=== PATIENT | male | born 1990 | race Caucasian/White ===

== ENCOUNTER 2025-01-23 13:42 | Day surgery (SDC) | payer SELFPAY ==
[2025-01-23] VITALS (16 sets, daily range): BP systolic 104–133; BP diastolic 56–98; PULSE 72–102; RESP 16–18; TEMP 36.5–37.1; O2SAT 91–100; BMI 38.8
--- OUTSIDE RECORDS SUMMARY | 2025-01-23 14:40 | XMS RPT_ITS | CCD ---
Author Organization [facility] Care Team Providers Care Financial Reserve Clerk Name Role Phone Christi Storm Unavailable Unavailable Christi Storm Unavailable Unavailable TIMUR LEAVITT Unavailable Unavailable TIMUR LEAVITT Unavailable Unavailable NONE, NONE Unavailable Unavailable RachelosielElie murrieta [phone] Unavailable Unavailable TIMUR LEAVITT Unavailable Unavailable NONE, NONE Unavailable Unavailable Allergies Allergy Classification Reported Allergen(s) Allergy Type Date of Onset Reaction(s) Facility (1 source) acetaminophen; Translations: [Tylenol] Drug Allergy AOF [facility] (1 source) bee venom; Translations: [bee venom (honey bee)] Propensity to adverse reactions (disorder) [facility] (1 source) Milk; Translations: [Milk] Propensity to adverse reactions (disorder) [facility] (1 source) ondansetron; Translations: [Zofran] Drug Allergy [facility] (1 source) peanut allergenic extract; Translations: [Peanut] Drug Allergy [facility] (1 source) MISC-ENV; Translations: [MISC-ENV] Propensity to adverse reactions (disorder) [facility] Problems Problem Classification Problem Date Documented Da te Episodic/Chronic Other lower respiratory disease (2 sources) Cough; Translations: [COUGH] Onset: 03-19-2017 Episodic Other upper respiratory infections (1 source) Acute upper respiratory infection, unspecified; Translations: [ACUTE UP RESPIRATORY INFECTION UNS] Onset: 03-25-2017 Episodic Viral infection (1 source) Viral infection, unspecified; Translations: [VIRAL INFECTION UNSPECIFIED] Onset: 03-25-2017 Episodic Results Test Name Value Interpretation Reference Range Facility CULTURE BLOODon 03-25-2017 Bacteria culture NO GROWTH OBSERVED AFTER 5 DAYS Normal [facility] Comment on above: Performed By: #### 6 00-7 ####[facility] Director - Merari Franz [id number] STREPTOCOCCUS SCREENon 03-21 STREPTOCOCCUS SCREEN Negative Normal [facility] Comment on above: Performed By: #### 1 8481-2, 70560-5 ####[facility] Director - Merari Franz [id number] BASIC METABOLIC PANELon Anion gap 10.0 mmol/L Normal <=15.0 [facility] Comment on above: Performed By: #### 2 4321-2 ####[facility] Director - Merari Franz [id number] Calcium 8.4 mg/dL Low 8.5-10.1 [facility] Comment on above: Performed By: #### 2 4321-2 ####[facility] Director - Merari Franz [id number] Chloride 103 mmol/L Normal 98-107 [facility] Comment on above: Performed By: #### 2 4321-2 ####[facility] Director - Merari Franz [id number] CO2 26 mmol/L Normal 21-32 [facility] Comment on above: Performed By: #### 2 4321-2 ####[facility] Director - Merari Franz [id number] Creatinine 0.73 mg/dL Normal 0.67-1.17 [facility] Comment on above: Performed By: #### 2 4321-2 ####[facility] Director - Merari Franz [id number] eGFR (MDRD) mL/min/{1.73_m2} Normal >=59 [facility] Comment on above: Performed By: #### 2 4321-2 ####[facility] Director - Merari Franz [id number] eGFR (non-black) GLOMERULAR FILTRATIO N RATE INTERPRETATION~The eGFR is calculated using the MDRD equation.~This equation has been validated in patients with chronic kidney disease;~however, it underestimates the GFR in healthy patients with GFR's over 60 mL/min.~The equation is not valid in children under the age of 18.~NOTE: Criteria for Chronic Kidney Disease:~ ~1. Kidney damage for at least three months, as defined~by structural or functional abnormalities of the kidney,~with or without decreased glomerular filtration rate, manifested by either:~* Pathological abnormalities or~* Markers of Kidney damage, including abnormalities in~the composition of the blood or urine or abnormalities in imaging tests.~ ~2. GFR <60 mL/min/1.73 m squared for at least three months, with or without kidney damage.~ Normal [facility] Comment on above: Performed By: #### 2 4321-2 ####[place] [address] Director - [facility] [id number] Glucose mass conc 119 mg/dL High 74-106 [facility] Comment on above: Performed By: #### 2 1-2 ####[place] [address] Director - Merari Osei [id number] Potassium molar conc 3.2 mmol/L Low 3.5-5.1 [facility] Comment on above: Performed By: #### 2 4320-2 ####[place] [address] Director - [facility] [id number] Sodium 139 mmol/L Normal 136-145 [facility] Comment on above: Performed By: #### 2 432-2 ####[place] [address] Director - Merari Osei [id number] Urea nitrogen 8 mg/dL Low 9-20 [facility] Comment on above: Performed By: #### 2 4321-2 ####[facility] Director - Merari Franz [id number] CBC with DIFFERENTIALon 09-0 Basophils Auto #/vol (Bld) 0.03 10*3/uL Normal <=0.70 [facility] Comment on above: Performed By: #### 5 7021-8 ####[facility] Director - Merari Franz [id number] Basophils/100 WBC Auto (Bld) 0.5 % Normal <=2.0 [facility] Comment on above: Performed By: #### 5 7021-8 ####[facility] Director - Merari Franz [id number] Eosinophils 0.01 10*3/uL Normal <=0.70 [facility] Comment on above: Performed By: #### 5 7021-8 ####[facility] Director - Merari Franz [id number] Eosinophils/100 leukocytes 0.2 % Normal <=10.0 [facility] Comment on above: Performed By: #### 5 7021-8 ####[facility] Director - Merari Franz [id number] Erythrocyte distribution width Auto Entitic volume (RBC) 38.2 fL Normal 35.1-43.9 [facility] Comment on above: Performed By: #### 5 7021-8 ####[facility] Director - Merari Franz [id number] Erythrocytes (RBC) 5.40 10*6/uL Normal 4.00-6.30 [facility] Comment on above: Performed By: #### 5 7021-8 ####[facility] Director - Meraridarryl RichardsonCLIA [id number] Hematocrit (HCT) 44.7 % Normal 40.0-54.0 [facility] Comment on above: Performed By: #### 5 7021-8 ####[facility] Director - Meraridarryl RichardsonCLIA [id number] Hemoglobin mass conc (Bld) 15.3 g/dL Normal 14.0-18.0 [facility] Comment on above: Performed By: #### 5 7021-8 ####[facility] Director - Meraridarryl RichardsonCLIA [id number] Immature granulocytes #/vol (Bld) 0.02 10*3/uL Normal <=0.10 [facility] Comment on above: Performed By: #### 5 7021-8 ####[place] [address] Director - Merari DylanCLIA [id number] Immature granulocytes/100 WBC (Bld) 0.30 % Normal <=1.50 [facility] Comment on above: Performed By: #### 5 7021-8 ####[facility] Director - Meraridarryl RichardsonCLIA [id number] Lymphocytes 1.00 10*3/uL Low 1.20-3.40 [facility] Comment on above: Performed By: #### 5 7021-8 ####[facility] Director - Merari FarrellCLIA [id number] Lymphocytes/100 leukocytes 16.8 % Low 20.0-40.0 [facility] Comment on above: Performed By: #### 5 7021-8 ####[facility] Director - Meraridarryl MorrisrellCLIA [id number] MCH 28.3 pg Normal 27.0-31.0 [facility] Comment on above: Performed By: #### 5 7021-8 ####[facility] Director - Merari FarrellCLIA [id number] MCHC mass conc (RBC) 34.2 g/dL Normal 32.0-36.0 [facility] Comment on above: Performed By: #### 5 7021-8 ####[facility] Director - Merari FarrellCLIA [id number] MCV 82.8 fL Normal 80.0-100.0 [facility] Comment on above: Performed By: #### 5 7021-8 ####[facility] Director - Merari FarrellCLIA [id number] Monocytes 0.91 10*3/uL High 0.10-0.60 [facility] Comment on above: Performed By: #### 5 7021-8 ####[facility] Director - Merari FarrellCLIA [id number] Monocytes/100 leukocytes 15.3 % High <=8.0 [facility] Comment on above: Performed By: #### 5 7021-8 ####[facility] Director - Merari FarrellCLIA [id number] Neutrophils 3.99 10*3/uL Normal 1.40-6.50 [facility] Comment on above: Performed By: #### 5 7021-8 ####[facility] Director - Merari FarrellCLIA [id number] Neutrophils/100 WBC Auto (Bld) 66.9 % Normal 50.0-70.0 [facility] Comment on above: Performed By: #### 5 7021-8 ####[facility] Director - Merari FarrellCLIA [id number] Nucleated erythrocytes 0.00 10*3/uL Normal <=0.10 [facility] Comment on above: Performed By: #### 5 7021-8 ####[place] [address] - [facility] PrashanthAK [id number] Platelet mean volume (PMV) 13.7 fL High 9.0-13.0 [facility] Comment on above: Performed By: #### 5 7021-8 ####[place] [address] [id number] Platelets 174 10*3/uL Normal 130-400 [facility] Comment on above: Performed By: #### 5 7021-8 ####[address]ct[facility] PrashanthAK [id number] WBC (Leukocytes) 5.96 10*3/uL Normal 4.80-10.80 [facility] Comment on above: Performed By: #### 5 7021-8 ####[place] [address] [id number] CHEST AND LATERAL OR 2 VIEWS on 03-20-2017 CHEST AND LATERAL OR 2 VIEWS CHEST, 2 VIEWS.COMPARISON: 07/24/2014.CLINICAL HISTORY: Cough, sore throat, congestion, and drainage for 4 days.FINDINGS: The cardiomediastinal contours are within normal limits. The lungsare clear without focal opacification or consolidation. No pleural effusion orpneumothorax. Visualized osseous structures are intact.IMPRESSION:No acute cardiopulmonary process. Normal [facility] MONO SCREENon 03-20-2017 Heteroph Ab Ser Ql EIA Negative Normal NEGATIVE [facility] Comment on above: Result Comment: This assay has not been established for patients under 18 years of age.This assay has not been established for patients under 18 years of age. Performed By: #### 6 425-3 ####[facility] DylanALICJA [id number] URINALYSISon 03-20-2017 Bilirub Ur Strip-mCnc Negative Normal NEGATIVE [facility] Comment on above: Performed By: #### 5 0564-4 ####[facility] Director - Merari Franz [id number] Glucose mass conc Negative Normal NEGATIVE [facility] Comment on above: Performed By: #### 5 0564-4 ####[facility] Director - Merari Franz [id number] Ketones Ur Strip-mCnc Negative Normal NEGATIVE [facility] Comment on above: Performed By: #### 5 0564-4 ####[facility] Director - Merari Franz [id number] Leukocyte esterase Ur-aCnc Negative Normal TRACE [facility] Comment on above: Performed By: #### 5 0564-4 ####[facility] Director - Merari Franz [id number] Urine, clarity Clear Normal CLEAR [facility] Comment on above: Performed By: #### 5 0564-4 ####[facility] Director - Merari Franz [id number] Urine, color Yellow Normal YELLOW [facility] Comment on above: Performed By: #### 5 0564-4 ####[facility] Director - Merari Franz [id number] Urine, erythrocytes Negative Normal NEGATIVE [facility] Comment on above: Performed By: #### 5 0564-4 ####[facility] Director - Merari Franz [id number] Urine, nitrite presence Negative Normal NEGATIVE [facility] Comment on above: Performed By: #### 5 0564-4 ####[facility] Director - Merari Franz [id number] Urine, pH 5.5 [pH] Normal 5.5-7.5 [facility] Comment on above: Performed By: #### 5 0564-4 ####[facility] Director - Merari Franz [id number] Urine, protein Negative Normal NEGATIVE [facility] Comment on above: Performed By: #### 5 0564-4 ####[facility] Director - Merari Franz [id number] Urine, specific gravity 1.025 Normal 1.010-1.035 [facility] Comment on above: Performed By: #### 5 0564-4 ####[place] [address] Director - Merari Franz [id number] Urobilinogen Ur-aCnc 2.0 E.U./dL Abnormal <=1 [facility] Comment on above: Performed By: #### 5 0564-4 ####[facility] Director - Merari Franz [id number] FLU A and B PANEL ARACELI Adrianankit 03-19-2017 FLUAV Ag XXX Ql Negative Normal NEGATIVE [facility] Comment on above: Performed By: #### 3 3535-6 ####[facility] Director - Merari Franz [id number] FLUBV Ag XXX Ql Negative Normal NEGATIVE [facility] Comment on above: Performed By: #### 3 3535-6 ####[facility] Director - Merari Franz [id number] RAPID STREP SCREENon 09-06-2 017 Streptococcus pyogenes antigen presence Negative Normal NEGSTREP [facility] Comment on above: Performed By: #### 1 8481-2, 87299-3 ####[facility], [place] [address]C[address]af[address] Director - Merari Franz [id number] Encounters Encounter Date Encounter Type Care Provider Facility Start: 03-19-2017 End: 03-20-2017 [facility] Start: 01-22-2017 Ambulatory Christi Storm Facilit y:Shannon Payers Date Payer Category Payer Unknown [id number] Summary Purpose Family History No Family History Records FoundNo Family History Records Found Advance Directives No Advanced Directives Records FoundNo Advanced Directives Records Found Additional Source Comments (unrecognized sect ion and content) No Status Records FoundNo Status Records Found INFORMATION SOURCE (unrecogn ized section and content) DATE CREATED AUTHOR 01/07/2018 [facility] DATE CREATED AUTHOR AUTHOR'S ORGANIZ ATION 01/09/2018 [facility] FOR RECORDS PERTAINING TO PATIENTS WHO ARE OR HAVE BEEN ENROLLED IN A CHEMICAL DEPENDENCY/SUBSTANCEABUSE PROGRAM, SOME INFORMATION MAY BE OMITTED. This clinical summary was aggregated from multiple sources. Caution should be exercised in using it in the provision of clinical care. This summary normalizes information from multiple sources, and as a consequence, information in this document may materially change the coding, format and clinical context of patient data. In addition, data may be omitted in some cases. CLINICAL DECISIONS SHOULD BE BASED ON THE PRIMARY CLINICAL RECORDS. [employer] provides no warranty or guarantee of the accuracy or completeness of information in this document.
--- NOTE | 2025-01-23 15:00 | CT_ITS ---
PROCEDURE: SOFT TISSUE NECK WITH CONTRAST 01/23/2025 REASON FOR EXAM: PHARYNGITIS TECHNIQUE: SOFT TISSUE NECK WITH CONTRAST CONTRAST: Isovue 370 VOLUME: 93 mL One or more dose reduction techniques were used (e.g., Automated exposure control, adjustment of the mA and/or kV according to patient size, use of iterative reconstruction technique). RADIATION DOSE SUMMARY: CTDlvol: 18.5 mGy DLP: 568 mGycm COMPARISON: None FINDINGS: Tonsils: Dental streak artifact slightly limits evaluation. There are hypodensities with peripheral enhancement in the left palatine tonsil measuring 1.6 x 2.5 x 1.5 cm (series 2, image 71; AP x TR x CC), and in the right palatine tonsil measuring 1.2 x 0.7 x 1.4 cm (image 70). Aerodigestive tract: There is narrowing of the aerodigestive tract at the level of the palatine tonsils. Retropharyngeal soft tissues are normal in thickness, without rim enhancing fluid collection. Salivary glands: Unremarkable Lymph nodes: Bilateral cervical chain lymphadenopathy is likely reactive. Thyroid: Unremarkable Vasculature: Unremarkable Orbits: Unremarkable Paranasal sinuses and mastoids: Predominantly clear Lung apices: Unremarkable Upper mediastinum: Unremarkable Bones: Unremarkable Dental: There is cavity formation and periapical lucency involving the for this posterior left mandibular molar. CT/Soft Tissue Neck WITH Contrast IMPRESSION: 1. Bilateral peritonsillar abscesses, measuring up to 2.5 cm on the left and 1 .4 cm on the right. Recommend ENT consultation. 2. Cervical lymphadenopathy is likely reactive. Recommend clinical follow-up. 3. 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 [place] Alert: The critical information above was relayed directly by me by telephone to Nasir Herrera on 01/23/2025 at 4:24 pm with readback verification. Reading Location: [id number]
--- NOTE | 2025-01-23 15:03 | EDS_ITS ---
HPI HPI - URI History of Present Illness Chief Complaint: Sore Throat Informant: patient Onset/Context/Timing Onset: Days Context: Gradual Onset Timing: Continuous Quality: Swelling Location: Throat Worsened by: Swallowing Relieved by: - (Nothing) Associated Symptoms Associated Symptoms: Positive for Shortness of Breath; Negative for Nasal Congestion, Headache, Nausea, Vomiting, Diarrhea, Chest Pain, Nonproductive cough, Hemoptysis or Productive Cough Narrative Narrative: Patient presents with sore throat that has been getting worse over the past several days. Patient states he had the weeks ago and was put on amoxicillin. Patient states he completed the course of amoxicillin was feeling better. Patient states that after that it started to come back. The patient has been taking amoxicillin without any improvement. Patient states his pain is worse with swallowing. Patient states he does have pain with opening his jaw. Patient admits to some subjective fevers. Patient states he feels like he has some shortness of breath at times. Patient denies any cough. ROS ROS ED Constitutional Constitutional ED: Reports fever(s) and subjective; Denies chills Eyes Eyes: Denies blurry vision or change in vision ENT ENT ED: Reports sore throat; Denies rhinorrhea Cardiovascular Cardiovascular: Denies chest pain or palpitations Respiratory/Chest Respiratory/Chest: Reports dyspnea; Denies cough Gastrointestinal Gastrointestinal: Denies nausea or vomiting Genitourinary Genitourinary ED: Denies dysuria or hematuria Musculoskeletal Musculoskeletal: Denies back pain or neck pain Integumentary Denies abscess or rash Neurologic Neurologic: Denies headache(s) or weakness Allergic/Immunologic Allergic/Immunologic ED: Denies mouth swelling or urticaria [facility] Medical History Asthma Home Medications ?Medication ?Instructions ?Recorded ?Last Taken ?Type albuterol sulfate 90 mcg/actuation 1 - 2 puff inhalati on Q4H PRN PRN 07/21/14 Unknown History aerosol inhaler (Ventolin HFA) Shortness Of Breath ondansetron 8 mg disintegrating 8 mg PO Q8H PRN PRN Na usea ##7 07/21/14 Unknown Rx tablet (Zofran ODT) Allergy/AdvReac Type Severity Reaction Status Date / Time acetaminophen (From Tylenol) Allergy blisters Verified 01/23/25 13:45 in mouth Surgical History no surgical history no surgical history Social History Smoking Status: Never smoker EXAM Physical Exam Const Vital Signs: 01/23/25 13:43 01/23/25 14:00 01/23/25 15:00 Temperature 98.8 F 98.4 F 98.6 F Temperature Source Oral Oral Oral Pulse Rate 102 H 78 72 Respiratory Rate 18 18 16 Blood Pressure 120/98 H 131/74 H 127/75 H Blood Pressure Mean 105 93 92 Pulse Ox 100 96 96 Oxygen Delivery Method Room Air Room Air Room Air 01/23/25 16:00 Temperature 98.8 F Temperature Source Oral Pulse Rate 78 Respiratory Rate 18 Blood Pressure 118/74 Blood Pressure Mean 88 Pulse Ox 97 Oxygen Delivery Method Room Air Positive well nourished and well developed General Appearance ED: well developed and NAD HEENT Reports moist mucous membranes HEENT Narrative: Oropharynx was erythematous. There are some edema of the oral pharynx patient does have some trismus which makes visualizing the oropharynx somewhat difficult. normocephalic Throat: posterior oropharynx abnormal Positive for edema and erythema Neck supple, no meningeal signs and no JVD Resp normal respiratory effort and clear to auscultation bilaterally Cardio Rate: regular rate Rhythm: regular rhythm GI non-tender and non-distended Palpation: soft Extremity normal to inspection and full ROM Neuro oriented x3, CN's II-XII intact bilaterally and no sensory deficits noted Sensorium / Orientation: alert Motor Exam: strength 5/5 throughout Psych mental status grossly normal MDM MDM MDM Narrative Medical decision making narrative: Differential diagnosis includes peritonsillar abscess, parapharyngeal abscess, pharyngitis, dehydration, and electrolyte abnormality. CBC will be obtained to assess for leukocytosis or anemia. Basic metabolic profile will be obtained to assess for electrolyte abnormality and renal function. Rapid strep will be obtained to assess for strep pharyngitis. CT scan soft tissue neck will be obtained to assess for peritonsillar and parapharyngeal abscess. Lab Data Attestation: I reviewed the patient's lab results. Lab results narrative: CBC was reviewed. There is a slight leukocytosis of 11.2. Basic metabolic profile was reviewed and was within normal limits. Rapid strep was reviewed and was negative. Labs: Laboratory Results - last 24 hr 01/23/25 15:35 WBC 11.2 H RBC 5.31 Hgb 15.1 Hct 44.1 MCV 83.1 MCH 28.4 MCHC 34.2 RDW Std Deviation 36.0 RDW Coeff of Juan Jose 11.9 Plt Count 239 MPV 13.7 H Immature Gran % (Auto) 0.400 Neut % (Auto) 74.7 H Lymph % (Auto) 11.0 L Victoria % (Auto) 10.7 H Eos % (Auto) 2.8 Baso % (Auto) 0.4 Absolute Neuts (auto) 8.4 H Absolute Lymphs (auto) 1.24 Nucleated RBC % 0 Sodium 139 Potassium 4.1 Chloride 102 Carbon Dioxide 22.6 Anion Gap 15 BUN 12 Creatinine 0.81 Estim Creat Clear Calc 167.22 Est GFR (MDRD) Non-Af 118 BUN/Creatinine Ratio 15.2 Glucose 100 H Calcium 9.9 Radiography Diagnostic Testing: Clinical Impression(s) from Imaging Studies Soft Tissue Neck CT 01/23/25 15:00 IMPRESSION: 1. Bilateral peritonsillar abscesses, measuring up to 2.5 cm on the left and 1.4 cm on the right. Recommend ENT consultation. 2. Cervical lymphadenopathy is likely reactive. Recommend clinical follow-up. 3. 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 [place] Alert: The critical information above was relayed directly by me by telephone to Nasir Barney on 01/23/2025 at 4:24 pm with readback verification. Reading Location: [facility] CT scan of the soft tissue neck was obtained. There are bilateral peritonsillar abscesses measuring up to 2.5 cm on the left and 1.4 cm on the right. There is reactive cervical lymphadenopathy. This was interpreted by the radiologist and was also independently reviewed by myself. Treatment and Re-Evaluation Narrative: Patient was given IV fluids. Patient was given a dose of Unasyn. Patient was given a dose of Decadron. Patient was advised of his findings. Case was discussed with Dr. Garcia from ENT. They will take the patient to the operating room today for drainage of peritonsillar abscesses. Patient understands and is agreeable with the plan. All questions were answered. Discharge Plan Dx/Rx/DC Orders Clinical Impression: Peritonsillar abscess, Pharyngitis Disposition Disposition: Acute Care Hospital [facility]
[2025-01-23] MEDS: 0.9% Normal Saline (1000mL) 1,000 ML 1000 ML IV (15:33)
[2025-01-23] MEDS: Ampicillin/Sulbactam 3 GM in 0.9% Normal Saline (100mL MB+) 100 ML IV (15:36)
[2025-01-23 16:00] LABS: Hematocrit 44.1 % (40-54); Hemoglobin 15.1 g/dL (13.0-16.5); Immature Granulocytes Count 0.040 X10^3/uL (0.0-0.0); Mean Corp Hgb Conc 34.2 g/dL (32-36); Mean Corpuscular Volume 83.1 fL (80-94); Mean Platelet Vol. 13.7 fl (6.2-12.0); NRBC Flagged by Analyzer 0 % (0-5); Platelet Count 239 K/mm3 (150-450); RBC Distribution Width CV 11.9 % (11.6-14.6); RBC Distribution Width SD 36.0 fl (35.1-43.9); Red Blood Count 5.31 M/mm3 (4.6-6.2); White Blood Count 11.2 K/mm3 (4.4-11.0)
[2025-01-23 16:19] LABS: Anion Gap 15 (5-15); BUN 12 mg/dL (4-19); BUN/Creat Ratio 15.2 RATIO (10-20); Calcium,Total 9.9 mg/dL (7.6-11.0); Carbon Dioxide 22.6 mmol/L (21.0-32.0); Chloride 102 mmol/L (98-108); Estimated Creatinine Clearance 167.22 ml/min (50-250); Glucose 100 mg/dL (70-99); Potassium 4.1 mmol/L (3.3-5.1)
--- OUTSIDE RECORDS SUMMARY | 2025-01-23 17:01 | XMS RPT_ITS | CCD ---
Author Organization [facility] Care Team Providers Care Tumor Registrar Name Role Phone Christi Storm Unavailable Unavailable Christi Storm Unavailable Unavailable TIMUR LEAVITT Unavailable Unavailable TIMUR LEAVITT Unavailable Unavailable NONE, NONE Unavailable Unavailable RachelosielElie murrieta [phone] Unavailable Unavailable TIMUR LEAVITT Unavailable Unavailable NONE, NONE Unavailable Unavailable Allergies Allergy Classification Reported Allergen(s) Allergy Type Date of Onset Reaction(s) Facility (1 source) acetaminophen; Translations: [Tylenol] Drug Allergy [facility] Repository (1 source) bee venom; Translations: [bee venom (honey bee)] Propensity to adverse reactions (disorder) [facility] Repository (1 source) Milk; Translations: [Milk] Propensity to adverse reactions (disorder) [facility] Repository (1 source) ondansetron; Translations: [Zofran] Drug Allergy [facility] Repository (1 source) peanut allergenic extract; Translations: [Peanut] Drug Allergy [facility] Repository (1 source) MISC-ENV; Translations: [MISC-ENV] Propensity to adverse reactions (disorder) [facility] Repository Problems Problem Classification Problem Date Documented [...] NO GROWTH OBSERVED AFTER [address] [facility] Comment on above: Performed By: #### 6 00-7 ####[facility] Director - Merari Franz [id number] STREPTOCOCCUS SCREENon 03-21 STREPTOCOCCUS SCREEN Negative Normal [facility] Comment on above: Performed By: #### 1 8481-2, 55090-2 ####[facility] Director - Merari Franz [id number] BASIC METABOLIC PANELon Anion gap 10.0 mmol/L Normal <=15.0 [facility] Comment on above: Performed By: #### 2 4321-2 ####[facility] Director - Merari Franz [id number] Calcium 8.4 mg/dL Low 8.5-10.1 [facility] Comment on above: Performed By: #### 2 4321-2 ####[facility] Director - Merari Franz [id number] Chloride 103 mmol/L Normal 98-107 [facility] Comment on above: Performed By: #### 2 4321-2 ####[facility] Director - Merari Franz [id number] CO2 26 mmol/L Normal 21-32 [facility] Comment on above: Performed By: #### 2 4321-2 ####[facility] Director - Merari Franz [id number] Creatinine 0.73 mg/dL Normal 0.67-1.17 [facility] Comment on above: Performed By: #### 2 4321-2 ####[facility] Director - Merari Franz [id number] eGFR (MDRD) mL/min/{1.73_m2} Normal >=59 [facility] Comment on above: Performed By: #### 2 4321-2 ####[facility] Director - Merari Franz [id number] eGFR (non-black) GLOMERULAR FILTRATIO N RATE INTERPRETATION~The [...] months, with or without kidney damage.~ Normal [facility] Comment on above: Performed By: #### 2 4321-2 ####[place] [address] Director - [facility] [id number] Glucose mass conc 119 mg/dL High 74-106 [facility] Comment on above: Performed By: #### 2 1-2 ####[place] [address] Director - Merari Osei [id number] Potassium molar conc 3.2 mmol/L Low 3.5-5.1 [facility] Comment on above: Performed By: #### 2 4320-2 ####[place] [address] Director - Merari [facility] [id number] Sodium 139 mmol/L Normal 136-145 [facility] Comment on above: Performed By: #### 2 432-2 ####[place] [address] Director - Merari Osei [id number] Urea nitrogen 8 mg/dL Low 9-20 [facility] Comment on above: Performed By: #### 2 4321-2 ####[facility] Director - Merari Franz [id number] CBC with DIFFERENTIALon 09-0 Basophils Auto #/vol (Bld) 0.03 10*3/uL Normal <=0.70 [facility] Comment on above: Performed By: #### 5 7021-8 ####[facility] Director - Merari Franz [id number] Basophils/100 WBC Auto (Bld) 0.5 % Normal <=2.0 [facility] Comment on above: Performed By: #### 5 7021-8 ####[facility] Director - Merari Franz [id number] Eosinophils 0.01 10*3/uL Normal <=0.70 [facility] Comment on above: Performed By: #### 5 7021-8 ####[facility] Director - Merari Franz [id number] Eosinophils/100 leukocytes 0.2 % Normal <=10.0 [facility] Comment on above: Performed By: #### 5 7021-8 ####[facility] Director - Merari Franz [id number] Erythrocyte distribution width Auto Entitic volume (RBC) 38.2 fL Normal 35.1-43.9 [facility] Comment on above: Performed By: #### 5 7021-8 ####[facility] Director - Merari Franz [id number] Erythrocytes (RBC) 5.40 10*6/uL Normal 4.00-6.30 [facility] Comment on above: Performed By: #### 5 7021-8 ####[facility] Director - Meraridarryl RichardsonCLIA [id number] Hematocrit (HCT) 44.7 % Normal 40.0-54.0 [facility] Comment on above: Performed By: #### 5 7021-8 ####[facility] Director - Meraridarryl RichardsonCLIA [id number] Hemoglobin mass conc (Bld) 15.3 g/dL Normal 14.0-18.0 [facility] Comment on above: Performed By: #### 5 7021-8 ####[facility] Director - Meraridarryl RichardsonCLIA [id number] Immature granulocytes #/vol (Bld) 0.02 10*3/uL Normal <=0.10 [facility] Comment on above: Performed By: #### 5 7021-8 ####[place] [address] Director - Merari DylanCLIA [id number] Immature granulocytes/100 WBC (Bld) 0.30 % Normal <=1.50 [facility] Comment on above: Performed By: #### 5 7021-8 ####[facility] Director - Meraridarryl RichardsonCLIA [id number] Lymphocytes 1.00 10*3/uL Low 1.20-3.40 [facility] Comment on above: Performed By: #### 5 7021-8 ####[facility] Director - Merari FarrellCLIA [id number] Lymphocytes/100 leukocytes 16.8 % Low 20.0-40.0 [facility] Comment on above: Performed By: #### 5 7021-8 ####[facility] Director - Meraridarryl MorrisrellCLIA [id number] MCH 28.3 pg Normal 27.0-31.0 [facility] Comment on above: Performed By: #### 5 7021-8 ####[facility] Director - Merari FarrellCLIA [id number] MCHC mass conc (RBC) 34.2 g/dL Normal 32.0-36.0 [facility] Comment on above: Performed By: #### 5 7021-8 ####[facility] Director - Merari FarrellCLIA [id number] MCV 82.8 fL Normal 80.0-100.0 [facility] Comment on above: Performed By: #### 5 7021-8 ####[facility] Director - Merari FarrellCLIA [id number] Monocytes 0.91 10*3/uL High 0.10-0.60 [facility] Comment on above: Performed By: #### 5 7021-8 ####[facility] Director - Merari FarrellCLIA [id number] Monocytes/100 leukocytes 15.3 % High <=8.0 [facility] Comment on above: Performed By: #### 5 7021-8 ####[facility] Director - Merari FarrellCLIA [id number] Neutrophils 3.99 10*3/uL Normal 1.40-6.50 [facility] Comment on above: Performed By: #### 5 7021-8 ####[facility] Director - Merari FarrellCLIA [id number] Neutrophils/100 WBC Auto (Bld) 66.9 % Normal 50.0-70.0 [facility] Comment on above: Performed By: #### 5 7021-8 ####[facility] Director - Merari FarrellCLIA [id number] Nucleated erythrocytes 0.00 10*3/uL Normal <=0.10 [facility] Comment on above: Performed By: #### 5 7021-8 ####[place] [address] - [facility] PrashanthFL [id number] Platelet mean volume (PMV) 13.7 fL High 9.0-13.0 [facility] Comment on above: Performed By: #### 5 7021-8 ####[place] [address] [id number] Platelets 174 10*3/uL Normal 130-400 [facility] Comment on above: Performed By: #### 5 7021-8 ####[address] StreetctAtrium Health [facility].[address] PrashanthFL [id number] WBC (Leukocytes) 5.96 10*3/uL Normal 4.80-10.80 [facility] Comment on above: Performed By: #### 5 7021-8 ####[place] [address] [id number] CHEST AND LATERAL OR 2 VIEWS on 03-20-2017 CHEST AND LATERAL OR 2 VIEWS CHEST, 2 VIEWS.COMPARISON: 07/24/2014.CLINICAL HISTORY: Cough, sore throat, congestion, and drainage for 4 days.FINDINGS: The cardiomediastinal contours are within normal limits. The lungsare clear without focal opacification or consolidation. No pleural effusion orpneumothorax. Visualized osseous structures are intact.IMPRESSION:No acute cardiopulmonary process. Normal [facility] MONO SCREENon 03-20-2017 Heteroph Ab Ser Ql EIA Negative Normal NEGATIVE [facility] Comment on above: Result Comment: This assay has not been established for patients under 18 years of age.This assay has not been established for patients under 18 years of age. Performed By: #### 6 425-3 ####[facility] DylanALICJA [id number] URINALYSISon 03-20-2017 Bilirub Ur Strip-mCnc Negative Normal NEGATIVE [facility] Comment on above: Performed By: #### 5 0564-4 ####[facility] Director - Merari Franz [id number] Glucose mass conc Negative Normal NEGATIVE [facility] Comment on above: Performed By: #### 5 0564-4 ####[facility] Director - Merari Franz [id number] Ketones Ur Strip-mCnc Negative Normal NEGATIVE [facility] Comment on above: Performed By: #### 5 0564-4 ####[facility] Director - Merari Franz [id number] Leukocyte esterase Ur-aCnc Negative Normal TRACE [facility] Comment on above: Performed By: #### 5 0564-4 ####[facility] Director - Merari Franz [id number] Urine, clarity Clear Normal CLEAR [facility] Comment on above: Performed By: #### 5 0564-4 ####[facility] Director - Merari Franz [id number] Urine, color Yellow Normal YELLOW [facility] Comment on above: Performed By: #### 5 0564-4 ####[facility] Director - Merari Franz [id number] Urine, erythrocytes Negative Normal NEGATIVE [facility] Comment on above: Performed By: #### 5 0564-4 ####[facility] Director - Merari Franz [id number] Urine, nitrite presence Negative Normal NEGATIVE [facility] Comment on above: Performed By: #### 5 0564-4 ####[facility] Director - Merari Franz [id number] Urine, pH 5.5 [pH] Normal 5.5-7.5 [facility] Comment on above: Performed By: #### 5 0564-4 ####[facility] Director - Merari Franz [id number] Urine, protein Negative Normal NEGATIVE [facility] Comment on above: Performed By: #### 5 0564-4 ####[facility] Director - Merari Franz [id number] Urine, specific gravity 1.025 Normal 1.010-1.035 [facility] Comment on above: Performed By: #### 5 0564-4 ####[place] [address] Director - Merari Franz [id number] Urobilinogen Ur-aCnc 2.0 E.U./dL Abnormal <=1 [facility] Comment on above: Performed By: #### 5 0564-4 ####[facility] Director - Merari Franz [id number] FLU A and B PANEL ARACELI Adrianankit 03-19-2017 FLUAV Ag XXX Ql Negative Normal NEGATIVE [facility] Comment on above: Performed By: #### 3 3535-6 ####[facility] Director - Merari Franz [id number] FLUBV Ag XXX Ql Negative Normal NEGATIVE [facility] Comment on above: Performed By: #### 3 3535-6 ####[facility] Director - Merari Franz [id number] RAPID STREP SCREENon 09-06-2 017 Streptococcus pyogenes antigen presence Negative Normal NEGSTREP [facility] Comment on above: Performed By: #### 1 8481-2, 25909-9 ####[facility], [place] [address] Director - Merari Franz [id number] Encounters Encounter Date Encounter Type Care Provider Facility Start: 03-19-2017 End: 03-20-2017 [facility] Start: 01-22-2017 Ambulatory Christi Storm Facilit y:Shannon Payers Date Payer Category Payer Unknown [id number] Summary Purpose Family History No Family History Records FoundNo Family History Records Found Advance Directives No Advanced Directives Records FoundNo Advanced Directives Records Found Additional Source Comments (unrecognized sect ion and content) No Status Records FoundNo Status Records Found INFORMATION SOURCE (unrecogn ized section and content) DATE CREATED AUTHOR 01/07/2018 [facility] DATE CREATED AUTHOR AUTHOR'S ORGANIZ ATION 01/09/2018 [facility]sp[facility] FOR RECORDS PERTAINING TO PATIENTS [...] BE BASED ON THE PRIMARY CLINICAL RECORDS. [employer] provides no warranty or guarantee of the accuracy or completeness of information in this document.
--- NOTE | 2025-01-23 17:54 | PCM.DC.SUM ---
Providers Primary Care Physician: No Primary Care Phys Reason For Visit: BILATERAL PERITONSILLAR ABSCESSES Medications at Discharge Home Medications albuterol sulfate 90 mcg/actuation aerosol inhaler (Ventolin HFA) 1 - 2 puff inhalation Q4H PRN PRN Shortness Of Breath 07/21/14 ondansetron 8 mg disintegrating tablet (Zofran ODT) 8 mg PO Q8H PRN PRN Nausea ##7 07/21/14 Weight / BMI Weight Weight: 122.697 kg Body Mass Index (BMI) 38.8 ABG / Lab / Microbiology Data 01/23/25 15:35 01/23/25 15:35 Laboratory: Laboratory Results - last 24 hr 01/23/25 15:35: WBC 11.2 H, RBC 5.31, Hgb 15.1, Hct 44.1, MCV 83.1, MCH 28.4, MCHC 34.2, RDW Std Deviation 36.0, RDW Coeff of Juan Jose 11.9, Plt Count 239, MPV 13.7 H, Immature Gran % (Auto) 0.400, Neut % (Auto) 74.7 H, Lymph % (Auto) 11.0 L, Morton % (Auto) 10.7 H, Eos % (Auto) 2.8, Baso % (Auto) 0.4, Absolute Neuts (auto) 8.4 H, Absolute Lymphs (auto) 1.24, Nucleated RBC % 0, Sodium 139, Potassium 4.1, Chloride 102, Carbon Dioxide 22.6, Anion Gap 15, BUN 12, Creatinine 0.81, Estim Creat Clear Calc 167.22, Est GFR (MDRD) Non-Af 118, BUN/Creatinine Ratio 15.2, Glucose 100 H, Calcium 9.9 Microbiology: Microbiology 01/23/25 15:40 Mucosa - Throat Streptococcus pyogenes (PCR) - Final Radiography Diagnostic Testing: Radiology Impression Soft Tissue Neck CT 01/23/25 15:00 IMPRESSION: 1. Bilateral peritonsillar abscesses, measuring up to 2.5 cm on the left and 1.4 cm on the right. Recommend ENT consultation. 2. Cervical lymphadenopathy is likely reactive. Recommend clinical follow-up. 3. 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 [place] Alert: The critical information above was relayed directly by me by telephone to Nasir Barney on 01/23/2025 at 4:24 pm with readback verification. Reading Location: [id number] Instructions Discharge Activity: Return to Normal Activity DC O2, CPAP, BIPAP Needs Home O2 Discharge instructions: No Please Follow Up With: Herrera Garcia MD When: 2 weeks Meaningful Use Info Meaningful Use Meaningful Use Diagnoses (Choose all that apply): None applicable Discharge Plan Admission Attending Provider: Herrera Garcia Primary Care Provider: Care Physician,No Primary Instructions Print Language: Citizen [place] Discharge Orders/Prescriptions Prescriptions: No Action albuterol sulfate [Ventolin HFA] 1 INHALER inhaler 1 - 2 puff inhalation Q4H PRN PRN (Reason: Shortness Of Breath) ondansetron [Zofran ODT] 8 MG tablet,disintegrating 8 mg PO Q8H PRN PRN (Reason: Nausea) Qty: 7 0RF Rx Instructions: Referrals / Follow Up: Care Physician,No Primary [Primary Care Provider] - Disposition Disposition (needs filled in before D/C Order can be placed): Home, Self Care
--- NOTE | 2025-01-23 17:55 | PCM.PRE.AN2 ---
ASA Classification* ASA Classification ASA Classification: 3 and E Assessment & Plan Anesthesia* Anesthesia Assessment Anesthesia Assessment: Discussed sedation and/or anesthesia options, risks, benefits, and alternatives with patient/parents/legal guardian/POA. Questions invited. The patient/parents/legal guardian/POA seems to understand and agrees to proceed with anesthesia plan. Reviewed the physical assessment, medical history, allergy history and patient home medications list prior to surgery/procedure/anesthetic and documented any changes. Performed airway and anesthesia risk assessments. Anesthesia Type Anesthesia Type: General Anesthesia Focused Assessment* Temperature: 98.4 F Pulse Rate: 92 Blood Pressure: 133/82 Respiratory Rate: 18 Pulse Ox: 97 Airway Assessment Mouth opens: >3 cm Mallampati Score: II Labs Anesthesia Preop lab: CBC WBC 11.2 K/mm3 (4.4-11.0) H 01/23/25 15:35 01/23/25 RBC 5.31 M/mm3 (4.6-6.2) 01/23/25 15:35 01/23/25 Hgb 15.1 g/dL (13.0-16.5) 01/23/25 15:35 01/23/25 Hct 44.1 % (40-54) 01/23/25 15:35 01/23/25 Plt Count 239 K/mm3 (150-450) 01/23/25 15:35 01/23/25 CHEMISTRY Potassium 4.1 mmol/L (3.3-5.1) 01/23/25 15:35 01/23/25 Sodium 139 mmol/L (133-145) 01/23/25 15:35 01/23/25 BUN 12 mg/dL (4-19) 01/23/25 15:35 01/23/25 Creatinine 0.81 mg/dL (0.70-1.20) 01/23/25 15:35 01/23/25 Glucose 100 mg/dL (70-99) H 01/23/25 15:35 01/23/25 COAG Pre-Assessment Diagnosis/Proposed Procedure Planned Operative Procedure(s): I&D dio sujatha tonsil abscess Anesthesia History 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 When Was Last Pacemaker Check QUESTION #4 FULL TEXT: You/Your Family Experience fever (hyperthermia) with Anesthesia Last Oral Intake Last Oral intake: Last Oral Intake NPO since Meds taken in AM with sips of water? 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 Has anyone observed you stop No 01/23/25 17:20 breathing during sleep? STOP Results Negative 01/23/25 17:20 QUESTION #5 FULL TEXT : Do you snore loudly (louder than talking or can be heard through closed doors)? 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 Specify any problems Hx of Preganancy in last 3 Months Nurse Filling Out Transfusion & Questions: Date: Time: Patient unable to answer at this time (ie. 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: /Reproductive Hx- envelope stamping machine operator Hx Now No 01/23/25 17:20 Gestational Age (in weeks): EDC: Hx Hx Para Hx Section SAB No 01/23/25 17:20 Active Medications Active Medications: Current Medications Generic Name Dose Route Start Last Admin Trade Name Freq PRN Reason Stop Dose Admin Iopamidol 0 ml 01/23/25 15:00 Contrast Allergy Safety Check IV X1 JOHN Ondansetron HCl 4 mg 01/23/25 17:57 Ondansetron 4 Mg/2 Ml Vial IV Q4H PRN PRN NAUSEA/VOMITING Tramadol HCl 100 mg 01/23/25 17:57 Tramadol 50 Mg Tablet PO Q6H PRN PRN Pain Score 1-10 PFSH Medical History Asthma Home Medications ?Medication ?Instructions ?Recorded ?Last Taken ?Type albuterol sulfate 90 mcg/actuation 1 - 2 puff inhalation Q4H PRN PRN 07/21/14 Unknown History aerosol inhaler (Ventolin HFA) Shortness Of Breath ondansetron 8 mg disintegrating 8 mg PO Q8H PRN PRN Nausea ##7 07/21/14 Unknown Rx tablet (Zofran ODT) Allergy/AdvReac Type Severity Reaction Status Date / Time acetaminophen (From Tylenol) Allergy blisters Verified 01/23/25 13:45 in mouth Surgical History no surgical history Social History Smoking Status: Never smoker Review of Systems (Anesthesia) ROS Narrative System reviewed and no additional complaints, except as documented.
--- NOTE | 2025-01-23 17:59 | PCM.OPRPT ---
Operative Report (Standard) Operative Information Date of Procedure: 01/23/25 Pre-Operative Diagnosis: Bilateral peritonsillar abscess Post-Operative Diagnosis: same Surgery/Procedure Performed: Incision and drainage bilateral peritonsillar abscess visual journalist: No Type of Anesthesia: General RN Documented Start/Stop Times: Operation Date: 01/23/25 18:05 <No data on this case meets the specified criteria> Procedure Start Time: 18:15 Procedure Stop Time: 18:22 Select all DRAINS/GRAFTS/IMPLANTS that apply: None Estimated Blood Loss: minimal Specimen collected: No Description of surgery: The patient was taken to the operative room on 01/23/2025. He was placed in the supine position on the operating room table. He was given sufficient general endotracheal anesthesia. The table was turned 90 degrees in a clockwise fashion. A Harvinder mouthgag was inserted into the patient's mouth the patient was suspended on a Neal stand. 1% lidocaine with epinephrine was injected into the peritonsillar mucosa overlying the intended incisions. After sufficient vasoconstriction, an incision was made in the left peritonsillar mucosa with an 11 blade. I placed a tonsil clamp within the abscess cavity and spread this widely. This resulted in immediate extrusion of pus. This was cultured. I then placed the Yankauer suction into the abscess cavity and suctioned the rest of the purulence away. I then made a small stab incision in the right peritonsillar space and pus was encountered. I spread the incision with a tonsil clamp. Pus was suctioned away. I then irrigated both peritonsillar spaces with copious saline. All irrigant was suctioned from the oropharynx. I used some sparing suction cautery on the bleeding mucosa. Once bleeding had ceased the Harvinder mouthgag was closed. It was reopened to inspect for bleeding there was none. Patient was then awoken and brought to the recovery room in stable condition. Blood loss minimal, replacement none. Sponge, needle, and instrument count were correct at the end procedure. Surgical Findings: pus Complications Complications: No
[2025-01-23] MEDS: Lidocaine 1% /Epi 1:100 (20ml) 20 ML Vial (18:20)
--- NOTE | 2025-01-23 18:51 | PCM.POST.ANE ---
Anesthesia: Postop Eval I Current Vital Signs Temperature: 97.7 F Pulse Rate: 95 Blood Pressure: 113/57 Respiratory Rate: 16 Pulse Ox: 94 Oxygen Delivery Method: Room Air Assessment Airway patent: Yes Spontaneous unlabored respirations: Yes Mental status: Awake and Calm nausea: No Vomiting: No Anesthesia Complication: No Fluid Hydration Crystalloid volume administer (ml): 400 Total IV fluid infused: 400 Progress Note Anesthesia document: Postop Eval 1 completed: Yes
--- NOTE | 2025-01-23 18:52 | PCM.POSTANE2 ---
Anesthesia Postop Eval I Sum Postop Eval Completion status Anesthesia document: Postop Eval 1 completed: Yes Anesthesia Postop Eval I Summary Anesthesia Postop Eval I Summary: Anesthesia Postop Eval I: Assessment Summary Airway patent Yes 01/23/25 18:52 Spontaneous unlabored Yes 01/23/25 18:52 respirations Mental status Awake,Calm 01/23/25 18:52 nausea No 01/23/25 18:52 Vomiting No 01/23/25 18:52 Anesthesia Postop Eval I: Fluid Summary Crystalloid volume administer 400 01/23/25 18:52 (ml) Colloids volume administered ( ml) Blood Product volume administered (ml) Total IV fluid infused 400 01/23/25 18:52 Anesthesia Postop Eval I: Summary Notes Anesthesia Complication No 01/23/25 18:52 Anesthesia Complication Comment: Post-operative progress note Anesthesia: Postop Eval II Evaluation Mental status: Awake Pain Level: 1 nausea: No Vomiting: No
== END 2025-01-23 19:58 | disposition home or self-care (01) ==
LOC: ED 16:53 → SDC 16:59 → ACINP 17:01
PROVIDERS: Emergency Provider Emergency Medicine; Visit Provider Otolaryngology
PROC: 0C9PXZZ Drainage of Tonsils, External Approach (ICD-10-PCS; CPT 42700; principal; 2025-01-23 18:00)
DX: J36 Peritonsillar abscess (principal)
CPT/HCPCS: 42700; 00170; 70491; 80048; 85025; 87015; 87070; 87075; 87077; 87116; 87186; 87205; 87206; 87651; 99284; Q9967; J0295; J2405